=== PATIENT | female | born 1945 | race Caucasian/White ===

== ENCOUNTER 2019-01-22 14:33 | Inpatient (IN) | payer MEDICARE, OTHER, SELFPAY ==
[2019-01-22 14:47] VITALS: BMI 23.6
[2019-01-22 16:22] VITALS: BP 150/92; PULSE 106; RESP 21; TEMP 36.3; O2SAT 99
[2019-01-22] MEDS: CEFAZOLIN 1 GM/50 ML FROZ.PIGGY IV (17:06)
[2019-01-22] MEDS: LACTATED RINGERS 1,000 ML 125 ML IV (17:06)
[2019-01-22 17:24] LABS: Hematocrit 39.8 % (36-46); Hemoglobin 13.4 g/dL (12.0-16.0); Mean Corpuscular HGB Conc 33.7 % (30-36); Mean Corpuscular Hemoglobin 33.9 PG (26-34); Mean Corpuscular Volume 100.6 fL (80-100); Platelet Count 339 X10^3/uL (150-400); Red Blood Cell Count 3.96 X10^6/uL (4.0-5.2); Red Cell Distribution Width 13.3 % (11.6-14.8); White Blood Cell Count 5.6 X10^3/uL (4.5-11.0)
[2019-01-22 19:30] VITALS: BP 111/68; PULSE 95; RESP 18; TEMP 36.2; O2SAT 99
[2019-01-23] VITALS (7 sets, daily range): BP systolic 102–115; BP diastolic 51–76; PULSE 88–104; RESP 14–18; TEMP 36.2–37; O2SAT 95–100
[2019-01-23] MEDS: LORazepam 0.5 MG TABLET PO ×2 (00:10→21:03)
[2019-01-23] MEDS: CEFAZOLIN 1 GM/50 ML FROZ.PIGGY IV ×3 (00:11→20:27)
[2019-01-23] MEDS: LACTATED RINGERS 1,000 ML 125 ML IV (01:51)
--- NOTE | 2019-01-23 07:01 | PM.PN.1 ---
Subjective Subjective Date Patient Seen: 01/23/19 Time Patient Seen: 07:01 Interval history: HOD#1 Day 1 Ancef 73-year-old female is seen at bedside after her admission yesterday afternoon from my clinic. For complete information please see history and physical forwarded by my clinic yesterday mid afternoon. She slept well and denies fevers chills nausea or vomiting. She self reports that she has no pain and feels that there is a diminished level of redness and warmth to the foot. no new complaints. Exam Vital Signs (past 8 hours): - 01/23/19 00:15 01/23/19 05:26 Temperature 98.4 F 98.3 F Pulse Rate 91 H 88 Respiratory Rate 16 16 Blood Pressure 111/51 L 112/74 Pulse Oximetry 96 98 Oxygen Delivery Method Room Air Oxygen Flow Rate 0 Narrative Exam Narrative: AAO in NAD HENMT Head: normal to inspection Ears: hearing grossly normal bilaterally Eyes EOM: EOM intact bilaterally Resp Effort & Inspection: normal respiratory effort Cardio Pulses: posterior tibial pulses present and dorsalis pedis present Extrem Left lower extremity: foot Other: Redness and warmth to the great toe but appears reduced in it's extension over the dorsolateral foot. Hallux cft immediate. Spot of blood on bandage, but otherwise no drainage. No new wound and portions of incision that had opened in two areas yesterday appear no larger and are enamel drier on exam. A little soreness to the touch on the great toe but no significant pain. Sensation is intact to the foot. No calf pain. She is able to DF and PF foot and knee w/o pain. Objective Labs Result Diagrams: 01/22/19 17:13 Labs: Laboratory Results - last 24 hr 01/22/19 17:13 WBC 5.6 RBC 3.96 L Hgb 13.4 Hct 39.8 MCV 100.6 H MCH 33.9 MCHC 33.7 RDW 13.3 Plt Count 339 Assessment & Plan Assessment and plan (1) Cellulitis of left foot: Problem details: Left foot cellulitus, s/p first metatarsophalageal joint fusion approximately 7 weeks ago on 12/09/18. -Dressing is changed to the foot -WBC is WNL -Awaiting results of gram stain/culture from clinic yesterday, will look into early results today -Empiric usage of cefazolin this morning appears to show some response, but will check later this afternoon to see if this response continues and we can send her home on oral equivalent, or if changes need to be made based on gram stain or responsiveness. -Reviewed with plan with patient and nursing. -Of note, H&P was sent yesterday afternoon but as of this writing is not yet seen in the documentation here, so will request aid with locating it or resend if needed. -Will return for reeval of patient later this evening. Current visit: Yes Status: Acute Quality VTE Deep Vein Thrombosis/Pulmonary Embolism Present on Admission: No
[2019-01-23] MEDS: CHOLECALCIFEROL (VITAMIN D3) 1,000 UNIT TABLET 2000 UNIT PO (08:01)
[2019-01-23] MEDS: ENOXAPARIN 40 MG/0.4 ML SYRINGE SUBCUT (08:01)
[2019-01-23] MEDS: DULOXETINE 30 MG CAPSULE 120 MG PO (08:01)
[2019-01-23] MEDS: valACYclovir 500 MG TABLET 250 MG PO (08:04)
--- NOTE | 2019-01-23 16:19 | CM.DPNOTE ---
DCP: note: Case received today: Due to lateness of hour Cylinder Dyer Liza advises to defer assessment for tomorrow and she will assist with this if need be.
--- NOTE | 2019-01-23 16:30 | CM.DPNOTE ---
THis note in lieu of template due to EMR issues.... Spoke to this very nice patient. She is alert and oriented x 4. Lives independantly but has 2 adult children who are actively involved in her life. She reports feeling well enough to be discharged today, but is very agreeable to complying with MD care plans. Once medical care is resolved her goal is to be discharged home where she denies she has any needs or barriers to follow up care. Uncertain of MD plan at this time. Will ask tomorrow's DCP to follow up with MD for possible discharge orders for IV therapy.
[2019-01-24] MEDS: CEFAZOLIN 1 GM/50 ML FROZ.PIGGY IV ×3 (03:28→20:23)
--- NOTE | 2019-01-24 08:00 | P.PN_ITS ---
Subjective Subjective Date Patient Seen: 01/24/19 Time Patient Seen: 08:01 Interval history: Day #2 Cefazolin iv Nallely seen this morning in no pain, denies f/c/n/v. Daughter spent night with her. She feels the foot is less red, less hot, and no new complaints. Exam Vital Signs (past 8 hours): Oxygen Delivery Method Room Air Oxygen Flow Rate 0 Const Orientation: alert, awake and oriented x3 Resp Effort & Inspection: normal respiratory effort Cardio Pulses: posterior tibial pulses present and dorsalis pedis present Extrem Other: Left foot great toe redness improved, and no longer along lateral foot or extending to ankle. Very discrete, still some increase in temp along the 1st MTPJ. Incision abscess spots previously showing discharge are no longer, and two areas distally show rises that are manipuated and then exude a couple drops of purulence. Distal one is what seems to be the location of her soreness, but that subsided after the discharge was release. No malodor, no crepitus, alignment still good at great toe with no motion at the 1st mtpj. NV status intact to the foot. Objective Labs Result Diagrams: 01/22/19 17:13 Labs: Phone call by lab yesterday notes early result from culture swab taken on 01/22/19 in outpatient clinic from the wound as some WBCs, gram + cocci. Still awaiting further details and culture. Assessment & Plan Assessment & Plan narrative: Left foot 1st metatarsophalangeal joint cellulitis -Redness shows signficant improvement this morning, however still needs attention at level of iv abx as two areas of purulence today. -Discussed findings with pharmacist as patient appears to be responding but with hardware in location and early gram stain findings while waiting on culture results, concern if we should broaden empiric care. Following discussion, decision is to perform nasal swab for rapid understanding of her carrier status, and for time being continue with current iv abx regimen as she appears to be responding. -If continues improvement overnight, may be able to d/c to home on po. If non- responsive, will determine if need for I&D (does not appear to have depth at this time to do this) or add to coverage via iv until cultures are returned. -Dressing changed, next to no drainage, ok to redress tomorrow again or prn -DVT prevention techniques reviewed. Repeat CBC in AM. Quality VTE Deep Vein Thrombosis/Pulmonary Embolism Present on Admission: No
[2019-01-24 08:10] VITALS: BP 105/62; PULSE 84; RESP 16; TEMP 36.3; O2SAT 96
[2019-01-24] MEDS: CHOLECALCIFEROL (VITAMIN D3) 1,000 UNIT TABLET 2000 UNIT PO (08:10)
[2019-01-24] MEDS: ENOXAPARIN 40 MG/0.4 ML SYRINGE SUBCUT (08:10)
[2019-01-24] MEDS: DULOXETINE 30 MG CAPSULE 120 MG PO (08:10)
[2019-01-24] MEDS: valACYclovir 500 MG TABLET 250 MG PO (08:11)
--- NOTE | 2019-01-24 09:45 | PC.NURSE ---
PT resting in bed. Denies pain, dressing changed by Dr. Stokes this am. MRSA swab sent to lab at 0945.
[2019-01-24 11:05] VITALS: BP 101/73; PULSE 89; RESP 16; TEMP 37; O2SAT 96
--- NOTE | 2019-01-24 11:08 | PC.NURSE ---
Reported Negative MRSA result from nasal swab this am. No order changes.
--- NOTE | 2019-01-24 15:11 | CM.DPC ---
DCP Abx planning: Per , anticipating pt will be able to switch to p.o. abx at d/c but will not likely know until tomorrow if IV-Abx will be needed at d/c. SW contacted [facility] and provided pt clinical information and they confirmed that pt's out of pocket expense will be around $530 a week due to her lack of Medicare coverage for home infusion but they can accept her if pt is agreeable to the cost. SW called [facility] outpt Infusion clinic ([phone]) a few times and had to leave a message and called [facility] outpt infusion ([phone]) and had to leave a message as well but obtained the [facility] infusion fax number ([phone]) from the injection molding machine operator. SW met bedside with pt and explained role and discussed possible options if IV-Abx needed at d/c including Home Infusion and the out of pocket expense, outpt infusion clinic, and SNF rehab. Pt states that if she would only need once a day dose then her preference would be [facility] as it is near her house. Pt agreeable to SW making referral to [facility] as a backup plan at this time. Pt states that if IV-Abx dose is more than once a day then she would consider home infusion or SNF if needed. SW called [facility] again and spoke to staff who confirms that if pt is on once a day dose they could accommodate her over the weekend as well. Direct phone number to the Infusion Clinic is [phone] and their fax number is [phone]. [facility] can accommodate peripheral line or PICC for infusion. SW faxed facesheet, current med list knowing it will likely change at d/c, and prog note to review in anticipation of possible IV-Abx at d/c. Plan: SW to follow closely in the morning to determine if pt can d/c with p.o vs IV-Abx at d/c. Pt's Dtr likely to stay the night tonight and can provide transport if safe for home tomorrow. СВЕТЛАНА Valdez
[2019-01-24 15:52] VITALS: BP 110/72; PULSE 92; RESP 18; TEMP 36.9; O2SAT 96
[2019-01-24] MEDS: LORazepam 0.5 MG TABLET PO (21:29)
[2019-01-25 02:31] VITALS: BP 101/64; PULSE 94; RESP 16; TEMP 36.4; O2SAT 96
[2019-01-25] MEDS: CEFAZOLIN 1 GM/50 ML FROZ.PIGGY IV ×2 (04:01→09:27)
[2019-01-25 05:18] LABS: Add Manual Diff / Slide Review NO; Basophils Absolute Auto 0 /uL (0-100); Basophils Percent Auto 1.1 % (0-2); Eosinophils Absolute Auto 200 /uL (0-450); Eosinophils Percent Auto 5.4 % (2-4); Hematocrit 36.3 % (36-46); Hemoglobin 12.4 g/dL (12.0-16.0); Lymphocytes Absolute Auto 1300 /uL (1100-4500); Lymphocytes Percent Auto 31.5 % (25-40); Mean Corpuscular HGB Conc 34.2 % (30-36); Mean Corpuscular Hemoglobin 34.3 PG (26-34); Mean Corpuscular Volume 100.5 fL (80-100); Monocytes Absolute Auto 600 /uL (0-900); Monocytes Percent Auto 14.1 % (3-14); Neutrophils Absolute Auto 2000 /uL (1500-7000); Neutrophils Percent Auto 47.9 % (50-75); Platelet Count 291 X10^3/uL (150-400); Red Blood Cell Count 3.61 X10^6/uL (4.0-5.2); Red Cell Distribution Width 13.4 % (11.6-14.8); White Blood Cell Count 4.2 X10^3/uL (4.5-11.0)
--- NOTE | 2019-01-25 08:39 | PM.PN.1 ---
Subjective Subjective Date Patient Seen: 01/25/19 Time Patient Seen: 08:40 Interval history: Hospital Day #3 Cefazolin iv Day #3 Nallely seen bedside in no significant pain this morning, resting. Denies f/c/n/v. Continues to receive iv abx. Nasal swab negative for MRSA yesterday. Able to void and eat without problems. Been using IS. Exam Vital Signs (past 8 hours): - 01/25/19 02:31 Temperature 97.6 F Pulse Rate 94 H Respiratory Rate 16 Blood Pressure 101/64 Pulse Oximetry 96 Oxygen Delivery Method Room Air Oxygen Flow Rate 0 Const Orientation: alert, awake and oriented x3 Eyes General: appearance normal, both eyes and all related structures EOM: EOM intact bilaterally Resp Effort & Inspection: normal respiratory effort Cardio Pulses: posterior tibial pulses present and dorsalis pedis present Extrem Other: Left foot great toe redness significantly improved, only shown at the distal point of the incision and a little less over the 1st interspace and medial second metatarsal head/neck. No increase in temp along the 1st MTPJ. Incision abscess spots eschar are able to be removed and appear healing still underneath, thinly epithelialized. Distal at incision with pressure gives no purulence but one drop of serous fluid. Just proximal to this, a bluish spot c/w deeper subcutaneous suspicion of dissolving suture, but not able to erupt yet into skin. No bogginess, no purulence from pressure along IS1 or MT2 head. No crepitus. Alignment still good at great toe with no motion at the 1st MTPJ. NV status intact to the foot. Objective Labs Result Diagrams: 01/25/19 04:50 Labs: Laboratory Results - last 24 hr 01/24/19 01/25/19 09:45 04:50 WBC 4.2 L RBC 3.61 L Hgb 12.4 Hct 36.3 MCV 100.5 H MCH 34.3 H MCHC 34.2 RDW 13.4 Plt Count 291 Neut % (Auto) 47.9 L Lymph % (Auto) 31.5 [place] % (Auto) 14.1 H Eos % (Auto) 5.4 H Baso % (Auto) 1.1 Neut # (Auto) 2000 Lymph # (Auto) 1300 [place] # (Auto) 600 Eos # (Auto) 200 Baso # (Auto) 0 Nasal Screen MRSA (PCR) Negative for mrsa Assessment & Plan Assessment & Plan narrative: Assessment & Plan narrative: Left foot 1st metatarsophalangeal joint cellulitis -Redness shows further significant improvement this morning, near resolution. -Based on negative for MRSA nasal swab, normal range WBC, and exam findings, discussed d/c to home with patient and her daughter and they are comfortable with this. Ok to transfer to oral course of antibiotics. Will use Keflex as she has responded will to iv equivalent in house. Rx to be provided to her pharmacy. She is receiving mid-morning iv dose of Ancef prior to d/c iv and d/c to home. -Discussed findings with her and daughter regarding still waiting on culture results and that those results may cause us to change her oral abx when we get those results, likely early next week. -Does not appear to need I&D at this time, will have her check foot daily for increased pain, redness, or systemic concerns. Safety instructions given. -Dressing changed, next to no drainage, ok to redress every other day or daily if strikethrough or gets wet. Used small amount of triple antibiotic ointment and gentle gauze. -DVT prevention techniques reviewed. -Ok to bear weight as tolerated, but elevate when seated at home. Use post op shoe she has. -Make appt to see me in clinic for Sunday, earlier if concerns prior. Time Spent With Patient Time with patient: 25 - 35 minutes Quality VTE Deep Vein Thrombosis/Pulmonary Embolism Present on Admission: No
[2019-01-25] MEDS: ENOXAPARIN 40 MG/0.4 ML SYRINGE SUBCUT (08:44)
[2019-01-25] MEDS: valACYclovir 500 MG TABLET 250 MG PO (08:44)
[2019-01-25] MEDS: DULOXETINE 30 MG CAPSULE 120 MG PO (08:44)
[2019-01-25] MEDS: CHOLECALCIFEROL (VITAMIN D3) 1,000 UNIT TABLET 2000 UNIT PO (08:44)
--- NOTE | 2019-01-25 09:11 | PM.DS.1 ---
History of Present Illness History of Present Illness Date Patient Seen: 01/25/19 Time Patient Seen: 09:14 Chief complaint: LF GREAT TOE CELLULITIS Narrative: 73 year old female admitted from clinic on Tuesday, January 22, 2019 to [facility] with concern of cellulitis to the great toe joint of the left foot, and recent history of great toe joint fusion. She was empirically started on iv cefazolin as we awaited results of gram stain and culture of discharge. She denied fevers, chills, nausea, vomiting. No fever. Discharge Providers Provider Date of admission: 01/22/19 14:33 Discharge Date: 01/25/19 Primary care physician: Martin Bianchi MD Consults: 01/22/19 16:15 Consult to Pastoral Services Routine Comment: if availabled Discharge provider: Franci Stokes DPM Summary Hospital Course Discharge Diagnosis: Left foot cellulitis Hospital Course: She began to respond to the iv antibiotic course and the areas of purulence from the incision appeared then resolved. Nasal swab negative for MRSA and did not mount a WBC count nor fever during her stay. Dressing was changed daily. She showed near-complete resolution this morning with some minor lingering redness without increased warmth to the distal aspect of the incision on the great toe and some into the second metatarsal head area, with resolution of the dorsal and lateral erythema as was noted on initial exam upon admission. With these findings and supportive lab evidence, decision made to discharge to home or oral antibiotic course, and follow up as an outpatient in my office early next week. Status at Discharge Cognitive/behavioral status at discharge: oriented and calm Functional status at discharge: independent ambulation Overall status at discharge: patient is progressing back to baseline Time Spent with Patient Time spent: Greater than 30 minutes Exam Vital Signs (past 8 hours): - 01/25/19 02:31 Temperature 97.6 F Pulse Rate 94 H Respiratory Rate 16 Blood Pressure 101/64 Pulse Oximetry 96 Oxygen Delivery Method Room Air Oxygen Flow Rate 0 Extrem Other: Left foot great toe redness significantly improved, only shown at the distal point of the incision and a little less over the 1st interspace and medial second metatarsal head/neck. No increase in temp along the 1st MTPJ. Incision abscess spots eschar are able to be removed and appear healing still underneath, thinly epithelialized. Distal at incision with pressure gives no purulence but one drop of serous fluid. Just proximal to this, a bluish spot c/w deeper subcutaneous suspicion of dissolving suture, but not able to erupt yet into skin. No bogginess, no purulence from pressure along IS1 or MT2 head. No crepitus. Alignment still good at great toe with no motion at the 1st MTPJ. NV status intact to the foot. Objective Labs Result Diagrams: 01/25/19 04:50 Labs: Laboratory Results - last 24 hr 01/24/19 01/25/19 09:45 04:50 WBC 4.2 L RBC 3.61 L Hgb 12.4 Hct 36.3 MCV 100.5 H MCH 34.3 H MCHC 34.2 RDW 13.4 Plt Count 291 Neut % (Auto) 47.9 L Lymph % (Auto) 31.5 [place] % (Auto) 14.1 H Eos % (Auto) 5.4 H Baso % (Auto) 1.1 Neut # (Auto) 2000 Lymph # (Auto) 1300 [place] # (Auto) 600 Eos # (Auto) 200 Baso # (Auto) 0 Nasal Screen MRSA (PCR) Negative for mrsa Discharge Plan Discharge Plan Patient Disposition: Home Discharge comment: d/c to home in c/o daughter following final iv antibiotic dose this morning. Discharge orders & Medications Prescriptions: New cephalexin [Keflex] 500 mg capsule 500 mg PO QID 10 Days Qty: 40 RF: 0 Continued valacyclovir [Valtrex] 500 mg Tablet 250 mg PO DAILY RF: 0 duloxetine [Cymbalta] 60 mg Capsule,Delayed Release(Dr/Ec) 120 mg PO DAILY RF: 0 alendronate tablet 70 mg WEEKLY RF: 0 Follow up/Referrals: Franci Stokes DPM [Physician] - 01/29/19 (Please call Sunday to place an appointment for my [place] [facility] for Sunday.) Martin Bianchi MD [Primary Care Provider] - Discharge Health Status Multidrug resistant organism: No MDRO Diet/Activity/Treatments Diet: Diet as Tolerated Activity: WB ok to left foot as tolerated, If increases in swelling or pain or redness, reduce WB and use assistive device. Cold/Heat Therapy: No ice to the foot. Skin/Wound/Dressing Care Report to your healthcare provider any signs of infection, such as:: chills, fever, night sweats, increased pain, unusual drainage and unusual redness Dressing: Dressing changes reviewed with patient and daughter today. Every other day unless it gets wet or strike through. Gentle gauze with very small amount of triple antibiotic ointment over distal tip of incision. Discharge Data Primary Care Provider: Martin Bianchi VTE Deep Vein Thrombosis/Pulmonary Embolism Present on Admission: No
[2019-01-25 09:45] VITALS: BP 102/72; PULSE 92; RESP 16; TEMP 36.7; O2SAT 96
--- NOTE | 2019-01-25 10:44 | PC.NURSE ---
Pt is dressed and ready for discharge home with daughter. Her meds have been returned to her from pharmacy. IV has been removed. Went over d/c instructions with Pt and Daughter, discussed d/c meds, time of last dose, encouraged increase fluid intake to prevent constipation or dehydration, s/s of infection ,and when to follow up. Dressing was changed by Dr. Stokes this morning. Pt denies further questions and was taken out via w/c by MATERIAL CONTROL CLERK to POV with daughter and all belongings.
--- NOTE | 2019-01-25 10:49 | CM.DPC ---
DCP Cont: Spoke to Dr. Chun this am. Confirmed that patient will be able to go home on oral antibiotics. Met with patient briefly. Introduced self and role,and had her sign her IMM. Her daughter was at bedside. P: Patient is be discharged home today, on oral antibiotics. Laurel Thompson RN/Mechanical Service Specialist
== END 2019-01-25 10:46 | disposition home or self-care (01) | DRG 863 ==
PROVIDERS: Admitting Provider Podiatrist; PCP Family Medicine; Visit Provider Podiatrist
DX: T81.41XA Infection following a procedure, superficial incisional surgical site, initial encounter (principal); L03.116 Cellulitis of left lower limb; F32.9 Major depressive disorder, single episode, unspecified
CPT/HCPCS: 36415; 85025; 85027; 87797; J1650